=== PATIENT | female | born 1995 | race Caucasian/White ===

== ENCOUNTER 2016-09-01 03:43 | Emergency (ER) | payer BC, MEDICAID ==
[2016-09-01 03:54] VITALS: BP 128/85
[2016-09-01] MEDS ORDERED: Amoxicillin 500 MG Cap PO ONE (04:11)
--- NOTE | 2016-09-01 04:18 | EDM.PDOC ---
ED HPI ENT - General Chief Complaint: ENT Problem Stated Complaint: TOOTHACHE Time Seen by Provider: 09/01/16 03:47 Source of Information: Reports: Patient, RN notes reviewed - History of Present Illness INITIAL COMMENTS - FREE TEXT/NARRATIVE: 21-year-old female has been having dental pain for about a week. Her right lower posterior molar has been giving her trouble. This has been pressure sensitive for even longer, now becoming hot and cold sensitive. This started throbbing during the night. This morning it awakened her about an hour ago. She has been taking intermittent Advil with some but not complete relief. She feels like there is some swelling to the right side of her face. The pain radiates toward her right ear. She's had no fever or chills. No other unusual symptoms - Related Data Allergies/ADRs: Allergies Allergy/AdvReac Type Severity Reaction Status Date / Time Sulfa (Sulfonamide Allergy Rash Verified 09/01/16 03:54 Antibiotics) Home Meds: Home Meds Methylphenidate [Concerta] 54 mg PO DAILY 08/21/14 [History] Hydrocodone/Acetaminophen [[place] 5-325 Tablet] 1 each PO Q6HR PRN #10 tablet 03/12 [Rx] Past Medical History - Past Health History Medical/Surgical History: Denies Medical/Surgical History HEENT History: Reports: Otitis media Other HEENT History: tubes in both ears - Infectious Disease History Infectious Disease History: Reports: Chicken pox - Past Surgical History Other HEENT Surgeries/Procedures: [place] teeth removal Social & Family History - Tobacco Use Smoking Status *Q: Never Smoker Second Hand Smoke Exposure: No - Caffeine Use Caffeine Use: Reports: Soda - Alcohol Use Days Per Week of Alcohol Use: 0 - Recreational Drug Use Recreational Drug Use: No ED ROS ENT - Review of Systems Review Of Systems: See Below Constitutional: Denies: fever, chills HEENT: Reports: Dental pain. Denies: Sinus problem, Throat pain Respiratory: Denies: shortness of breath Cardiovascular: Denies: Chest pain GI/Abdominal: Denies: Abdominal pain, Nausea, Vomiting Musculoskeletal: Reports: no symptoms Skin: Reports: no symptoms Neurological: Reports: no symptoms ED EXAM, ENT - Physical Exam Exam: See Below General Appearance: alert, no apparent distress Eye Exam: bilateral eye: PERRL Ears: normal canal, normal TMs Nose: normal inspection Mouth/Throat: Normal inspection, Dental pain (there is tenderness to pressure and percussion right posterior lower molar, very minimal gum swelling presentsurrounding that tooth, there is tenderness of her face lateral to the tooth). No: Throat swelling, Tongue swelling Head: facial swelling (very slight right face) Neck: supple, full range of motion. No: lymphadenopathy (L), lymphadenopathy (R ) Respiratory/Chest: no respiratory distress, lungs clear, normal breath sounds Cardiovascular: regular rate, rhythm Extremities: normal inspection, normal range of motion Neurological: alert, oriented, no motor/sensory deficits Skin: Warm, Dry, Normal color, No rash Course - Vital Signs Last Recorded V/S: Last Vital Signs Temp 96.8 F 09/01/16 03:49 Pulse 102 H 09/01/16 03:49 Resp 18 09/01/16 03:49 BP 128/85 09/01/16 03:49 Pulse Ox 99 09/01/16 03:49 - Orders/Labs/Meds Meds: Medications Discontinued Medications Generic Name Dose Route Start Last Admin Trade Name Aguilar PRN Reason Stop Dose Admin Amoxicillin 1,000 mg 09/01/16 04:11 Amoxil PO 09/01/16 04:12 ONETIME ONE Departure - Departure Time of Disposition: 04:14 Disposition: Home, Self-Care 01 Condition: fair Clinical Impression: Pain, dental Prescriptions: Hydrocodone/Acetaminophen [[place] 5-325 Tablet] 1 each PO Q6HR PRN #10 tablet PRN Reason: Pain Instructions: Dental Caries, [id number] Referrals: Minnie Gabriel MD [Primary Care Provider] - Forms: ED Department Discharge Additional Instructions: amoxicillin 1000 mg twice daily until gone, Advil or ibuprofen 600 mg 2-3 times daily with food,you may take Tylenol in between doses up to 2 doses daily for extra pain relief, you may take Tylenol or hydrocodone if needed for more severe pain at bedtime to help you sleep, do not drive or work when taking hydrocodone, did not take hydrocodone and Tylenol at the same time, see dentist as soon as possible
== END 2016-09-01 04:25 | disposition home or self-care (01) ==
LOC: JD.ED 03:43
DX: K08.89 Other specified disorders of teeth and supporting structures (principal); Z88.2 Allergy status to sulfonamides
CPT/HCPCS: 99282; A9270; 99283

== ENCOUNTER 2016-09-11 21:09 | Emergency (ER) | payer BC | END 2016-09-11 22:50 | disposition left against medical advice (07) | LOC: JD.ED 21:09 | DX: Z53.21 Procedure and treatment not carried out due to patient leaving prior to being seen by health care provider (principal) | CPT/HCPCS: 99282-25 ==

== ENCOUNTER 2017-11-13 04:44 | Emergency (ER) | payer BC ==
[2017-11-13 04:53] VITALS: BP 129/72
[2017-11-13] MEDS ORDERED: Acetaminophen/HYDROcodone 325-5 MG Tab PO ONE (05:06)
--- NOTE | 2017-11-13 05:06 | EDM.PDOC ---
ED HPI GENERAL MEDICAL PROBLEM - General Chief Complaint: ENT Problem Stated Complaint: TOOTH PAIN Time Seen by Provider: 11/13/17 05:01 Source of Information: Reports: Patient, Family History Limitations: Reports: No Limitations - History of Present Illness INITIAL COMMENTS - FREE TEXT/NARRATIVE: The patient presents with left lower tooth pain. This started a few days ago. She has bad teeth and she has seen a dentist. She is not sure when she can get any work done. She has no fever or chills. Onset: Gradual Duration: Day(s): Location: Reports: Face (Left lower jaw pain) Quality: Reports: Sharp Severity: Severe Improves with: Reports: None Worsens with: Reports: None Associated Symptoms: Reports: No Other Symptoms Left Lower Tooth/Teeth Pain Score (Numeric/FACES): 10 - Related Data Allergies Allergy/AdvReac Type Severity Reaction Status Date / Time Sulfa (Sulfonamide Allergy Rash Verified 09/01/16 03:54 Antibiotics) Home Meds: Home Meds Methylphenidate [Concerta] 54 mg PO DAILY 08/21/14 [History] Hydrocodone/Acetaminophen [Hydrocodon-Acetaminophen 5-325] 1 - 2 each PO Q6HR PRN #20 tablet 11/13/17 [Rx] Penicillin V Potassium 500 mg PO Q6HR #40 tab 11/13/17 [Rx] Sertraline [Zoloft] 50 mg PO DAILY 11/13/17 [History] Past Medical History - Past Health History Medical/Surgical History: Denies Medical/Surgical History HEENT History: Reports: Otitis Media Other HEENT History: tubes in both ears Psychiatric History: Reports: ADHD - Infectious Disease History Infectious Disease History: Reports: Chicken Pox - Past Surgical History Other HEENT Surgeries/Procedures: [place] teeth removal Social & Family History - Family History Family Medical History: Noncontributory - Tobacco Use Smoking Status *Q: Never Smoker - Caffeine Use Caffeine Use: Reports: Soda - Recreational Drug Use Recreational Drug Use: No ED ROS ENT - Review of Systems Review Of Systems: See Below Constitutional: Reports: No Symptoms HEENT: Reports: Dental Pain Respiratory: Reports: No Symptoms Cardiovascular: Reports: No Symptoms Endocrine: Reports: No Symptoms GI/Abdominal: Reports: No Symptoms ED EXAM, ENT - Physical Exam Exam: See Below Exam Limited By: No Limitations General Appearance: Alert, No Apparent Distress Ears: Normal External Exam Nose: Normal Inspection Mouth/Throat: Other (Erythema, edema and pain upon palpation to the left lower jaw.) Course - Vital Signs Last Recorded V/S: Last Vital Signs Temp 97.8 F 11/13/17 04:49 Pulse 63 11/13/17 04:49 Resp 16 11/13/17 04:49 BP 129/72 11/13/17 04:49 Pulse Ox 100 11/13/17 04:49 Departure - Departure Time of Disposition: 05:05 Disposition: Home, Self-Care 01 Condition: Good Clinical Impression: Dental abscess, Pain, dental - Discharge Information Prescriptions: Hydrocodone/Acetaminophen [Hydrocodon-Acetaminophen 5-325] 1 - 2 each PO Q6HR PRN #20 tablet PRN Reason: Pain Penicillin V Potassium 500 mg PO Q6HR #40 tab Referrals: Minnie Gabriel MD [Primary Care Provider] - Additional Instructions: Take the medication as prescribed. Follow up with a dentist. Please return if you are worse.
== END 2017-11-13 05:12 | disposition home or self-care (01) ==
LOC: JD.ED 04:44
DX: K04.7 Periapical abscess without sinus (principal); Z88.2 Allergy status to sulfonamides
CPT/HCPCS: 99282; A9270; 99283

== ENCOUNTER 2018-02-23 15:38 | Emergency (ER) | payer BC ==
--- NOTE | 2018-02-23 15:43 | EDM.PDOC ---
ED HPI GENERAL MEDICAL PROBLEM - General Chief Complaint: Headache Stated Complaint: HEADACHE Time Seen by Provider: 02/23/18 15:43 Source of Information: Reports: Patient History Limitations: Reports: No Limitations - History of Present Illness INITIAL COMMENTS - FREE TEXT/NARRATIVE: Patient is a 22-year-old female presents ED complaining of left-sided retro- orbital headache that started approximately 4:00 this morning. Headache was gradual onset and has persisted throughout the course of the day. It waxes and wanes with intensity. Discomfort is constant described as being a throbbing sensation. This is worsen with noise and also exposure to light. There's been no upper respiratory symptoms, fever, stiff neck, shows breath, chest pain, numbness or tingling to extremities, weakness to extremities, or recent trauma and he precipitated this. She has a history of migraines in the past but this is little bit different. Patient states her last menstrual cycle was one week ago. She is not sexually active. Denies being . No alcohol use, recreational drug use, or smoking history. Currently the patient states is rated a 10 out of 10 but does not appear in acute distress during our conversation. She has no additional past medical history. Currently taking no meds. Surgical history none. Left Headache Pain Score (Numeric/FACES): 10 - Related Data Allergies Allergy/AdvReac Type Severity Reaction Status Date / Time Sulfa (Sulfonamide Allergy Rash Verified 09/01/16 03:54 Antibiotics) Home Meds: Home Meds Methylphenidate [Concerta] 54 mg PO DAILY 08/21/14 [History] Hydrocodone/Acetaminophen [Hydrocodon-Acetaminophen 5-325] 1 - 2 each PO Q6HR PRN #20 tablet 11/13/17 [Rx] Sertraline [Zoloft] 50 mg PO DAILY 11/13/17 [History] Past Medical History - Past Health History Medical/Surgical History: Denies Medical/Surgical History HEENT History: Reports: Otitis Media Other HEENT History: tubes in both ears Psychiatric History: Reports: ADHD - Infectious Disease History Infectious Disease History: Reports: Chicken Pox - Past Surgical History Other HEENT Surgeries/Procedures: [place] teeth removal Social & Family History - Family History Family Medical History: Noncontributory - Caffeine Use Caffeine Use: Reports: Soda ED ROS GENERAL - Review of Systems Review Of Systems: ROS reveals no pertinent complaints other than HPI. - Physical Exam Exam: See Below Exam Limited By: No Limitations General Appearance: Alert, WD/WN, No Apparent Distress Eye Exam: Bilateral Eye: EOMI, Normal Inspection, Nystagmus (None noted), PERRL Ears: Hearing Grossly Normal Nose: Normal Inspection Throat/Mouth: Normal Inspection, Normal Oropharynx, Normal Voice, No Airway Compromise Head Exam: Atraumatic, Normocephalic Neck: Normal Inspection, Supple, Non-Tender, Full Range of Motion Respiratory/Chest: No Respiratory Distress, Lungs Clear, Normal Breath Sounds, Chest Non-Tender Cardiovascular: Normal Peripheral Pulses, Regular Rate, Rhythm, No Murmur GI/Abdominal: Normal Bowel Sounds, Soft, Non-Tender, No Organomegaly, No Distention Neuro Exam (Abbreviated): Alert, Oriented, CN II-XII Intact, Normal Cognition, Normal Gait, No Motor/Sensory Deficits, Other (No facial droop, slurred speech, uvular deviation, tongue deviation, weakness discrepancy's to the upper or lower extremities. Finger-nose and rapid alternating movements are intact. Gait is normal.) Back Exam: Normal Inspection Extremities: Normal Inspection, Normal Range of Motion, Non-Tender Psychiatric: Normal Affect, Normal Mood Skin Exam: Warm, Dry, Intact, Normal Color Course - Vital Signs Last Recorded V/S: Last Vital Signs Temp 99.2 F 02/23/18 15:45 Pulse 86 02/23/18 15:45 Resp 20 02/23/18 15:45 BP 131/67 02/23/18 15:45 Pulse Ox 95 02/23/18 15:45 - Orders/Labs/Meds Meds: Medications Discontinued Medications Generic Name Dose Route Start Last Admin Trade Name Aguilar PRN Reason Stop Dose Admin Diphenhydramine HCl 50 mg 02/23/18 16:24 02/23/18 16:39 Benadryl IM 02/23/18 16:25 50 mg ONETIME ONE Administration Haloperidol Lactate 7.5 mg 02/23/18 16:24 02/23/18 16:39 Haldol IM 02/23/18 16:25 7.5 mg ONETIME ONE Administration Ketorolac Tromethamine 60 mg 02/23/18 16:24 02/23/18 16:38 Toradol IM 02/23/18 16:25 60 mg ONETIME ONE Administration Ondansetron HCl 4 mg 02/23/18 16:24 02/23/18 16:40 Zofran Odt PO 02/23/18 16:25 4 mg ONETIME ONE Administration - Re-Assessments/Exams Free Text/Narrative Re-Assessment/Exam: Patient is a 22-year-old female presents ED complaining of left-sided head discomfort retro-orbital sensitive to light and noise. Headache was gradual onset rated 10 out of 10. Patient does not appear to be in acute distress. We have discussed abortive therapy with Haldol, Benadryl, Zofran, and Toradol. Patient agrees with proceeding with administration of these meds. She has a ride present. 02/23/18 17:32 Reassessment, headache is currently a 5 out of 10. She is ready to be discharged home. Discharge instructions as documented.The patient remained hemodynamically stable while under my care in the E.D. I discussed the concerning symptoms for which to returnto the E.D. with the patient/family. The patient/family verbalized understanding. All questions were answered. Departure - Departure Time of Disposition: 17:42 Disposition: Home, Self-Care 01 Condition: Good Clinical Impression: Migraine Headache Qualifiers: Headache type: unspecified Headache chronicity pattern: acute headache Intractability: not intractable Qualified Code(s): R51 - Headache - Discharge Information *PRESCRIPTION DRUG MONITORING PROGRAM REVIEWED*: Not Applicable *COPY OF PRESCRIPTION DRUG MONITORING REPORT IN PATIENT GREG: Not Applicable Instructions: Migraine Headache, [id number] Referrals: Minnie Gabriel MD [Primary Care Provider] - Forms: ED Department Discharge Additional Instructions: Go home and finding a dark room to sleep with no distractions. Utilize Tylenol and ibuprofen and alternate fashion for headache. Drink plenty of fluids. See your PCP first part of next week for reevaluation as needed. Return to the ED if you develop any new or worsening symptoms as discussed.
[2018-02-23 15:46] VITALS: BP 131/67
[2018-02-23] MEDS ORDERED: diphenhydrAMINE 50 MG/ML SDV IM ONE (16:24)
[2018-02-23] MEDS ORDERED: Ondansetron 4 MG Tab.DIS PO ONE (16:24)
[2018-02-23] MEDS ORDERED: Ketorolac 60 MG/2 ML SDV IM ONE (16:24)
[2018-02-23] MEDS ORDERED: Haloperidol Lactate 5 MG/ML SDV IM ONE (16:24)
== END 2018-02-23 18:00 | disposition home or self-care (01) ==
LOC: JD.ED 15:38
DX: G43.909 Migraine, unspecified, not intractable, without status migrainosus (principal); Z88.2 Allergy status to sulfonamides; Z79.899 Other long term (current) drug therapy
CPT/HCPCS: 96372; 99284; A9270; J1200; J1630; J1885

== ENCOUNTER 2018-06-25 03:09 | Emergency (ER) | payer BC ==
[2018-06-25] MEDS ORDERED: traMADol 50 MG Tab PO ONE (03:32)
[2018-06-25 03:48] VITALS: BP 124/78
--- NOTE | 2018-06-25 04:46 | ER ---
REASON FOR EMERGENCY ROOM VISIT: Toothache. HISTORY OF PRESENT ILLNESS: This 22-year-old woman has had several visits to the emergency department for recurrent toothaches and dental abscesses. She is known to have very poor dentition and states that she has been unable to afford dental work. She has been treated with narcotics in the past for pain as well as antibiotics for flare-ups of her dental problems. She has had 2 visits to the ED this year and one in 2017. PAST MEDICAL HISTORY: 1. She has history of headaches. 2. History of otitis media. PAST SURGICAL HISTORY: History of wisdom teeth extraction. ALLERGIES: Sulfa antibiotics. CURRENT MEDICATIONS: Reviewed. See EMR include methylphenidate 50 mg p.o. daily and Zoloft 50 mg p.o. daily. PHYSICAL EXAMINATION: VITAL SIGNS: She is afebrile. Blood pressure 124/78, pulse rate is 76, and O2 saturations 99% on room air. HEENT: Head is normocephalic. She states she has some puffiness in her left cheek, but it is not discernible on physical examination. TMs are normal. Oropharynx, she has very poor dentition with numerous fillings, chipped teeth, cracked teeth and teeth broken off at the gum line all the way around top and bottom. She has redness and edema of her gingiva along the gingival dental margins all the way around. She does have tenderness on palpation of her left maxillary second molar. There is no cervical adenopathy present. IMPRESSION: Toothache, possible dental abscess. PLAN: Pen VK 500 mg, dispensed #40 one q.i.d. until all are gone. Tramadol 50 mg dispensed #20, one p.o. q.4 hours p.r.n. pain. A long discussion was undertaken regarding the hazards in continuing to neglect her dental health. Among these risks, I outlined to her things such as brain abscesses and so forth, so this is not just a matter of pain control rather it is a matter that it could threaten her health in a very serious way. She understands this and states that she does have a dental appointment in the upcoming sometime in the middle of June. MMSHU /[id number]
== END 2018-06-25 03:42 | disposition home or self-care (01) ==
LOC: JD.ED 03:09
DX: K08.89 Other specified disorders of teeth and supporting structures (principal); Z88.2 Allergy status to sulfonamides
CPT/HCPCS: 99283; A9270

== ENCOUNTER 2018-07-20 13:25 | Emergency (ER) | payer BC ==
[2018-07-20 14:03] VITALS: BP 111/65
--- NOTE | 2018-07-20 14:30 | EDM.PDOC ---
ED HPI GENERAL MEDICAL PROBLEM - General Chief Complaint: ENT Problem Stated Complaint: DENTAL COMPLAINT Time Seen by Provider: 07/20/18 14:08 Source of Information: Reports: Patient, RN Notes Reviewed - History of Present Illness INITIAL COMMENTS - FREE TEXT/NARRATIVE: severe dental pain R upper post molar, tooth has been decayed for a long time, pain has become much worse the past 2 to 3 days, taking ibuprofen without much relief. Right Upper Tooth/Teeth Pain Score (Numeric/FACES): 10 - Related Data Allergies Allergy/AdvReac Type Severity Reaction Status Date / Time Sulfa (Sulfonamide Allergy Rash Verified 06/25/18 03:25 Antibiotics) Home Meds: Home Meds Methylphenidate [Concerta] 54 mg PO DAILY 08/21/14 [History] Sertraline [Zoloft] 50 mg PO DAILY 11/13/17 [History] Acetaminophen/HYDROcodone [[place] 325-5 MG] 1 tab PO Q6H PRN #14 tablet 07/20/18 [Rx] Past Medical History - Past Health History Medical/Surgical History: Denies Medical/Surgical History HEENT History: Reports: Otitis Media Other HEENT History: tubes in both ears Neurological History: Reports: Other (See Below) Other Neuro History: occasional headaches Psychiatric History: Reports: ADHD - Infectious Disease History Infectious Disease History: Reports: Chicken Pox - Past Surgical History HEENT Surgical History: Reports: Oral Surgery Other HEENT Surgeries/Procedures: [place] teeth removal Social & Family History - Family History Family Medical History: Noncontributory - Tobacco Use Smoking Status *Q: Never Smoker - Caffeine Use Caffeine Use: Reports: Soda - Recreational Drug Use Recreational Drug Use: No ED ROS ENT - Review of Systems Review Of Systems: See Below Constitutional: Denies: Fever, Chills HEENT: Reports: Dental Pain Respiratory: Denies: Shortness of Breath Cardiovascular: Denies: Chest Pain GI/Abdominal: Denies: Abdominal Pain, Nausea, Vomiting Musculoskeletal: Reports: No Symptoms Skin: Denies: Rash Neurological: Reports: No Symptoms ED EXAM, ENT - Physical Exam Exam: See Below General Appearance: Alert, Mild Distress Eye Exam: Bilateral Eye: PERRL Nose: Normal Inspection Mouth/Throat: Dental Pain (tenderness of R upper post molar with decay present, gum not swollen, no drainage) Head: Facial Tenderness. No: Facial Swelling Neck: Supple. No: Lymphadenopathy (L), Lymphadenopathy (R) Respiratory/Chest: No Respiratory Distress, Lungs Clear Cardiovascular: Regular Rate, Rhythm Neurological: Alert, No Motor/Sensory Deficits Skin: Warm, Dry, Normal Color Course - Vital Signs Last Recorded V/S: Last Vital Signs Temp 98.6 F 07/20/18 14:01 Pulse 72 07/20/18 14:01 Resp 20 07/20/18 14:01 BP 111/65 07/20/18 14:01 Pulse Ox 99 07/20/18 14:01 Departure - Departure Time of Disposition: 14:27 Disposition: Home, Self-Care 01 Condition: Fair Clinical Impression: Pain, dental - Discharge Information Prescriptions: Acetaminophen/HYDROcodone [[place] 325-5 MG] 1 tab PO Q6H PRN #14 tablet PRN Reason: Pain Referrals: Minnie Gabriel MD [Primary Care Provider] - Forms: ED Department Discharge Additional Instructions: Amoxicillin 1000 mg twice daily, he may take hydrocodone if needed for severe pain. Do not drive or work when taking hydrocodone, see your dentist Monday as planned.
== END 2018-07-20 14:50 | disposition home or self-care (01) ==
LOC: JD.ED 13:25
DX: K08.89 Other specified disorders of teeth and supporting structures (principal); Z88.2 Allergy status to sulfonamides; Z79.899 Other long term (current) drug therapy
CPT/HCPCS: 99282; 99283

== ENCOUNTER 2019-04-01 16:03 | Emergency (ER) | payer BC, MEDICAID ==
[2019-04-01] MEDS ORDERED: FLU Vacc QS2019-20(6MOS+)/PF 60 MCG/0.5 ML SYRINGE IM ONE (16:45)
--- NOTE | 2019-04-01 16:47 | EDM.PDOC ---
ED HPI GENERAL MEDICAL PROBLEM - General Chief Complaint: ENT Problem Stated Complaint: DENTAL COMPLAINT Time Seen by Provider: 04/01/19 16:23 Source of Information: Reports: Patient History Limitations: Reports: No Limitations - History of Present Illness INITIAL COMMENTS - FREE TEXT/NARRATIVE: The patient presents with upper dental pain. This started a few days ago. She does have bad teeth and she went to the dentist today and he did x-rays and he is getting a plan of care. She has no fever or chills. Onset: Gradual Duration: Day(s): Location: Reports: Other Quality: Reports: Sharp Severity: Severe Improves with: Reports: None Worsens with: Reports: None Associated Symptoms: Reports: No Other Symptoms Right Oral/Mouth Pain Score (Numeric/FACES): 6 - Related Data Allergies Allergy/AdvReac Type Severity Reaction Status Date / Time Sulfa (Sulfonamide Allergy Rash Verified 04/01/19 16:24 Antibiotics) Home Meds: Home Meds Methylphenidate [Concerta] 54 mg PO DAILY 08/21/14 [History] Sertraline [Zoloft] 50 mg PO DAILY 11/13/17 [History] Hydrocodone/Acetaminophen [Hydrocodon-Acetaminophen 5-325] 1 - 2 each PO Q6HR PRN #20 tablet 04/01/19 [Rx] Levonorgestrel-Ethin Estradiol [[place]-28 Tablet] 1 each PO DAILY 04/01/19 [ History] Penicillin V Potassium 500 mg PO Q6HR #40 tab 04/01/19 [Rx] Past Medical History - Past Health History Medical/Surgical History: Denies Medical/Surgical History HEENT History: Reports: Otitis Media Other HEENT History: tubes in both ears Neurological History: Reports: Other (See Below) Other Neuro History: occasional headaches Psychiatric History: Reports: ADHD - Infectious Disease History Infectious Disease History: Reports: Chicken Pox - Past Surgical History HEENT Surgical History: Reports: Oral Surgery Other HEENT Surgeries/Procedures: [place] teeth removal Social & Family History - Family History Family Medical History: Noncontributory - Tobacco Use Smoking Status *Q: Never Smoker - Caffeine Use Caffeine Use: Reports: Soda - Recreational Drug Use Recreational Drug Use: No ED ROS ENT - Review of Systems Review Of Systems: See Below Constitutional: Reports: No Symptoms HEENT: Reports: Dental Pain Respiratory: Reports: No Symptoms Cardiovascular: Reports: No Symptoms Endocrine: Reports: No Symptoms GI/Abdominal: Reports: No Symptoms : Reports: No Symptoms ED EXAM, ENT - Physical Exam Exam: See Below Exam Limited By: No Limitations General Appearance: Alert, No Apparent Distress Ears: Normal External Exam Nose: Normal Inspection Mouth/Throat: Other ([place] eroded teeth with erythema and edema to the right upper gum line) Head: Atraumatic, Normocephalic Neck: Normal Inspection Course - Vital Signs Last Recorded V/S: Last Vital Signs Temp 97.5 F 04/01/19 16:22 Pulse 75 04/01/19 16:22 Resp 16 04/01/19 16:22 BP 127/67 04/01/19 16:22 Pulse Ox 98 04/01/19 16:22 - Orders/Labs/Meds Orders: Active Orders 24 hr Category Date Time Status Influenza Vaccine Charge [RC] .DISCHARGE Care 04/01/19 16:27 Active Pharmacy to Dose - InFluenza V [Pharmacy to Dose - Med 04/01/19 16:27 Once InFluenza Vaccine] 1 each IM ONETIME ONE Medication Orders Influenza Virus Vaccine (Pharmacy To Dose - Influenza Vaccine) 1 each IM ONETIME ONE Stop: 04/01/19 16:28 Meds: Medications Generic Name Dose Route Start Last Admin Trade Name Freq PRN Reason Stop Dose Admin Influenza Virus Vaccine 1 each 04/01/19 16:27 Pharmacy To Dose - Influenza Vaccine IM 04/01/19 16:28 ONETIME ONE Discontinued Medications Generic Name Dose Route Start Last Admin Trade Name Freq PRN Reason Stop Dose Admin Influenza Virus Vaccine 60 mcg 04/01/19 16:45 Fluzone Quad [id number] Syringe IM 04/01/19 16:46 .ONCE ONE Departure - Departure Time of Disposition: 16:50 Disposition: Home, Self-Care 01 Condition: Good Clinical Impression: Pain, dental, Dental abscess - Discharge Information *PRESCRIPTION DRUG MONITORING PROGRAM REVIEWED*: No *COPY OF PRESCRIPTION DRUG MONITORING REPORT IN PATIENT GREG: No Prescriptions: Hydrocodone/Acetaminophen [Hydrocodon-Acetaminophen 5-325] 1 - 2 each PO Q6HR PRN #20 tablet PRN Reason: Pain Penicillin V Potassium 500 mg PO Q6HR #40 tab Referrals: Minnie Gabriel MD [Primary Care Provider] - 1 Week Forms: ED Department Discharge Additional Instructions: Take the medicine as prescribed. Follow up with your dentist. Please return if you are worse. - My Orders Last 24 Hours: My Active Orders 04/01/19 16:27 Influenza Vaccine Charge [RC] .DISCHARGE Pharmacy to Dose - InFluenza V [Pharmacy to Dose - InFluenza Vaccine] 1 each IM ONETIME ONE - Assessment/Plan Last 24 Hours: My Active Orders 04/01/19 16:27 Influenza Vaccine Charge [RC] .DISCHARGE Pharmacy to Dose - InFluenza V [Pharmacy to Dose - InFluenza Vaccine] 1 each IM ONETIME ONE
[2019-04-01 16:52] VITALS: BP 127/67; PULSE 75
== END 2019-04-01 17:15 | disposition home or self-care (01) ==
LOC: JD.ED 16:03
DX: K04.7 Periapical abscess without sinus (principal); F90.9 Attention-deficit hyperactivity disorder, unspecified type; Z79.899 Other long term (current) drug therapy; Z88.2 Allergy status to sulfonamides
CPT/HCPCS: 90686; 99282-25; G0008

== ENCOUNTER 2019-08-17 12:28 | Emergency (ER) | payer BC, MEDICAID ==
[2019-08-17 12:37] VITALS: BP 138/74; PULSE 105
--- NOTE | 2019-08-17 12:59 | EDM.PDOC ---
ED HPI GENERAL MEDICAL PROBLEM - General Chief Complaint: General Stated Complaint: DENTAL COMPLAINT Time Seen by Provider: 08/17/19 12:34 Source of Information: Reports: Patient, Old Records, RN Notes Reviewed History Limitations: Reports: No Limitations - History of Present Illness INITIAL COMMENTS - FREE TEXT/NARRATIVE: Patient is a 24-year-old female who presents to the ED for a dental complaint. The patient notes that she has had prior issues with these teeth in the past, is complaining of left upper jaw pain. Of note her dentition is in very poor repair, with multiple caries extending into the dentin all over. She does point to 1 tooth in the incisor region that seems to be causing her most of the pain today. She is taking [id number] Motrin every 6 hours for pain relief , does state that this helps provide quite a bit relief. She notes that she recently got dental insurance, so she is looking into providers to help get her teeth situation taken care of. She has not had any fevers or chills, no nausea/ vomiting/diarrhea, no sore throat, and has not been feeling sick otherwise. Patient did have some mild facial swelling earlier today appreciated by a friend , but there is no discernible facial swelling noted right now. Tooth/Teeth Pain Score (Numeric/FACES): 7 - Related Data Allergies Allergy/AdvReac Type Severity Reaction Status Date / Time Sulfa (Sulfonamide Allergy Rash Verified 08/17/19 12:34 Antibiotics) Home Meds: Home Meds Methylphenidate [Concerta] 54 mg PO DAILY 08/21/14 [History] Sertraline [Zoloft] 50 mg PO DAILY 11/13/17 [History] Levonorgestrel-Ethin Estradiol [Falmina-28 Tablet] 1 each PO DAILY 04/01/19 [ History] Naproxen [Naprosyn] 500 mg PO Q12HR #14 tab 08/17/19 [Rx] Penicillin V Potassium 500 mg PO Q6HR #40 tab 08/17/19 [Rx] Past Medical History HEENT History: Reports: Otitis Media, Other (See Below) Other HEENT History: tubes in both ears, poor dentition-recurrent tooth infections Neurological History: Reports: Other (See Below) Other Neuro History: occasional headaches Psychiatric History: Reports: ADHD, Depression - Infectious Disease History Infectious Disease History: Reports: Chicken Pox - Past Surgical History HEENT Surgical History: Reports: Oral Surgery Other HEENT Surgeries/Procedures: [place] teeth removal Social & Family History - Family History Family Medical History: Noncontributory - Tobacco Use Smoking Status *Q: Never Smoker - Caffeine Use Caffeine Use: Reports: Soda - Recreational Drug Use Recreational Drug Use: No ED ROS GENERAL - Review of Systems Review Of Systems: Comprehensive ROS is negative, except as noted in HPI. Constitutional: Denies: Fever, Chills HEENT: Reports: Dental Pain (see HPI) Respiratory: Denies: Shortness of Breath Cardiovascular: Denies: Chest Pain GI/Abdominal: Denies: Abdominal Pain, Nausea, Vomiting Neurological: Denies: Headache ED EXAM, GENERAL - Physical Exam Exam: See Below Exam Limited By: No Limitations General Appearance: Alert, WD/WN, No Apparent Distress Eye Exam: Bilateral Eye: EOMI, Normal Inspection, PERRL Ears: Normal External Exam Nose: Normal Inspection Throat/Mouth: Normal Inspection, Normal Lips, Normal Voice, No Airway Compromise , Inflammation (Along the gumline, specifically around the left upper jaw, where the patient is having most of her pain. There is no identifiable abscess or fluctuance.), Other (Dentition is in very poor repair. There are diffuse dental caries noted throughout the entire dentition. Most of which are exposed into the dentin.) Head: Atraumatic, Normocephalic Neck: Normal Inspection, Supple, Non-Tender, Full Range of Motion Respiratory/Chest: No Respiratory Distress, Lungs Clear, Normal Breath Sounds, No Accessory Muscle Use, Chest Non-Tender Cardiovascular: Normal Peripheral Pulses, Regular Rate, Rhythm, No Murmur Peripheral Pulses: 3+: Radial (L), Radial (R) Extremities: Normal Inspection, Normal Capillary Refill Neurological: Alert, Oriented, Normal Cognition, No Motor/Sensory Deficits Psychiatric: Normal Affect, Normal Mood Skin Exam: Warm, Dry, Intact, Normal Color, No Rash Course - Vital Signs Last Recorded V/S: Last Vital Signs Temp 97.2 F 08/17/19 12:34 Pulse 105 H 08/17/19 12:34 Resp 17 08/17/19 12:34 BP 138/74 08/17/19 12:34 Pulse Ox 99 08/17/19 12:34 - Re-Assessments/Exams Free Text/Narrative Re-Assessment/Exam: 08/17/19 13:04 Patient presents to the ED for dental complaint. As this is an ongoing problem and she is obviously not sought dental care. I will give her some penicillin for suspected infection, and Naprosyn tablets for the pain. She will be directed to follow-up with a dental clinic, she states she does have dental insurance at this time, I did give her the number for the [facility] in [place] as they have been known to work with people who do not have dental insurance or provide payment plans. Medications have been electronically prescribed to cynthia Hall by Jose per her choice. Departure - Departure Time of Disposition: 12:55 Disposition: Home, Self-Care 01 Condition: Fair Clinical Impression: Dental caries extending into dentin - Discharge Information *PRESCRIPTION DRUG MONITORING PROGRAM REVIEWED*: No *COPY OF PRESCRIPTION DRUG MONITORING REPORT IN PATIENT GREG: No Prescriptions: Penicillin V Potassium 500 mg PO Q6HR #40 tab Naproxen [Naprosyn] 500 mg PO Q12HR #14 tab Referrals: Minnie Gabriel MD [Primary Care Provider] - Forms: ED Department Discharge, ED Return to Work/School Form Additional Instructions: You have been evaluated in the ED for your dental pain. You have been provided with a script for Penicillin. This was electronically sent to the [facility] pharmacy located near [facility]. Please take this medication as directed. (1 tab Q6H for 10 days or until gone). You were given a prescription for Naprosyn, Please take 1 tab every 12 hours for pain relief. You may use hot pack/ ice packs to the affected area as tolerated in 15-20 minute intervals. You will ultimately need to find a dentist to provide definitive management of your dental pain. The [facility] in [place], [place], , is a clinic that has been known to take people that do not have dental insurance, and may provide payment plans. You might want to check with this provider, regarding your dental pain. Please return to the ED if your symptoms change or worsen. Sepsis Event Note - Evaluation Sepsis Screening Result: No Definite Risk - Focused Exam Vital Signs: Vital Signs Temp Pulse Resp BP Pulse Ox 08/17/19 12:34 97.2 F 105 H 17 138/74 99 Date Exam was Performed: 08/17/19 Time Exam was Performed: 12:59
== END 2019-08-17 13:00 | disposition home or self-care (01) ==
LOC: JD.ED 12:28
DX: K02.9 Dental caries, unspecified (principal); F90.9 Attention-deficit hyperactivity disorder, unspecified type; F32.9 Major depressive disorder, single episode, unspecified; Z79.899 Other long term (current) drug therapy; Z88.2 Allergy status to sulfonamides
CPT/HCPCS: 99283

== ENCOUNTER 2019-09-30 07:04 | Emergency (ER) | payer BC, OTHER ==
--- NOTE | 2019-09-30 07:45 | EDM.PDOC ---
ED HPI GENERAL MEDICAL PROBLEM - General Chief Complaint: ENT Problem Stated Complaint: TOOTH INFECTION Time Seen by Provider: 09/30/19 07:24 Source of Information: Reports: Patient History Limitations: Reports: No Limitations - History of Present Illness INITIAL COMMENTS - FREE TEXT/NARRATIVE: The patient presents with left upper jaw tooth pain. This has been an ongoing problem for months. She was going to see a dentist a couple weeks ago but the COVID 19 pandemic shut down the dentist's office. She is scheduled to go there next week on the . She has no fever or chills. Onset: Gradual Duration: Week(s): Location: Reports: Other (Mouth) Quality: Reports: Sharp Severity: Severe Improves with: Reports: None Worsens with: Reports: None Associated Symptoms: Reports: No Other Symptoms Tooth/Teeth Pain Score (Numeric/FACES): 5 - Related Data Allergies Allergy/AdvReac Type Severity Reaction Status Date / Time Sulfa (Sulfonamide Allergy Rash Verified 09/30/19 07:22 Antibiotics) Home Meds: Home Meds Methylphenidate [Concerta] 54 mg PO DAILY 08/21/14 [History] Sertraline [Zoloft] 50 mg PO DAILY 11/13/17 [History] Levonorgestrel-Ethin Estradiol [Falmina-28 Tablet] 1 each PO DAILY 04/01/19 [ History] Hydrocodone/Acetaminophen [Hydrocodon-Acetaminophen 5-325] 1 - 2 each PO Q6HR PRN #15 tablet 09/30/19 [Rx] Penicillin V Potassium 500 mg PO Q6HR #40 tab 09/30/19 [Rx] Past Medical History - Past Health History Medical/Surgical History: Denies Medical/Surgical History HEENT History: Reports: Otitis Media, Other (See Below) Other HEENT History: tubes in both ears, poor dentition-recurrent tooth infections Neurological History: Reports: Other (See Below) Other Neuro History: occasional headaches Psychiatric History: Reports: ADHD, Depression - Infectious Disease History Infectious Disease History: Reports: Chicken Pox - Past Surgical History HEENT Surgical History: Reports: Oral Surgery Other HEENT Surgeries/Procedures: [place] teeth removal Social & Family History - Family History Family Medical History: Noncontributory - Tobacco Use Smoking Status *Q: Never Smoker - Caffeine Use Caffeine Use: Reports: None - Recreational Drug Use Recreational Drug Use: No ED ROS ENT - Review of Systems Review Of Systems: See Below Constitutional: Reports: No Symptoms HEENT: Reports: Dental Pain Respiratory: Reports: No Symptoms Cardiovascular: Reports: No Symptoms Endocrine: Reports: No Symptoms GI/Abdominal: Reports: No Symptoms : Reports: No Symptoms Musculoskeletal: Reports: No Symptoms ED EXAM, ENT - Physical Exam Exam: See Below Exam Limited By: No Limitations General Appearance: Alert, No Apparent Distress Ears: Normal External Exam Nose: Normal Inspection Mouth/Throat: Other (Very poor dentition with erythema and pain upon palpation to the 1st left upper molar) Course - Vital Signs Last Recorded V/S: Last Vital Signs Temp 97.5 F 09/30/19 07:20 Pulse 87 09/30/19 07:20 Resp 16 09/30/19 07:20 BP 131/75 09/30/19 07:20 Pulse Ox 95 09/30/19 07:20 Departure - Departure Time of Disposition: 07:45 Disposition: Home, Self-Care 01 Condition: Good Clinical Impression: Dental caries, Dental abscess, Pain, dental - Discharge Information *PRESCRIPTION DRUG MONITORING PROGRAM REVIEWED*: No *COPY OF PRESCRIPTION DRUG MONITORING REPORT IN PATIENT GREG: No Prescriptions: Hydrocodone/Acetaminophen [Hydrocodon-Acetaminophen 5-325] 1 - 2 each PO Q6HR PRN #15 tablet PRN Reason: Pain Penicillin V Potassium 500 mg PO Q6HR #40 tab Referrals: Minnie Gabriel MD [Primary Care Provider] - Additional Instructions: Take the antibiotics as prescribed. Take tylenol or motrin as needed for pain. If that does not help, try the hydrocodone. You may also try some orajel. Follow up with your dentist. Sepsis Event Note - Evaluation Sepsis Screening Result: No Definite Risk - Focused Exam Vital Signs: Vital Signs Temp Pulse Resp BP Pulse Ox 09/30/19 07:20 97.5 F 87 16 131/75 95 Date Exam was Performed: 09/30/19 Time Exam was Performed: 07:39
== END 2019-09-30 08:00 | disposition home or self-care (01) ==
LOC: JD.ED 07:04
CPT/HCPCS: 99282; 99283

== ENCOUNTER 2020-01-18 10:09 | Emergency (ER) | payer BC, OTHER ==
[2020-01-18 10:47] VITALS: BP 128/81; PULSE 91
[2020-01-18] MEDS ORDERED: Ondansetron 4 MG/2 ML SDV IVPUSH ONE (12:18)
[2020-01-18] MEDS ORDERED: Sodium Chloride 0.9% 1,000 ML IV SCH (12:30)
--- NOTE | 2020-01-18 12:32 | EDM.PDOC ---
ED HPI GENERAL MEDICAL PROBLEM - General Chief Complaint: Abdominal Pain Stated Complaint: ABDOMINAL PAIN Time Seen by Provider: 01/18/20 12:10 Source of Information: Reports: Patient History Limitations: Reports: No Limitations - History of Present Illness INITIAL COMMENTS - FREE TEXT/NARRATIVE: Patient is a 24-year-old female who presents with complaints of right lower quadrant abdominal pain for the last week. She states symptoms initially began last Monday with nausea and generalized abdominal pain. She had no vomiting, however states she felt like she could vomit. Denies diarrhea. States since that time the pain is more localized to the right lower quadrant, however it does occasionally have "shooting pains "across to the left side of her abdomen. She states that she feels she has been feverish off and on, however she does not have a thermometer at home. She denies any history of previous abdominal surgeries. She does still have her gallbladder and her appendix. Right Abdomen Pain Score (Numeric/FACES): 4 - Related Data Allergies Allergy/AdvReac Type Severity Reaction Status Date / Time Sulfa (Sulfonamide Allergy Rash Verified 09/30/19 07:22 Antibiotics) Home Meds: Home Meds Methylphenidate [Concerta] 54 mg PO DAILY 08/21/14 [History] Sertraline [Zoloft] 50 mg PO DAILY 11/13/17 [History] Levonorgestrel/Ethin.estradiol [Falmina-28 Tablet] 1 each PO DAILY 04/01/19 [History] Meloxicam 15 mg PO DAILY 01/18/20 [History] Nitrofurantoin Monohyd/M-Cryst [Macrobid 100 mg Capsule] 100 mg PO BID 5 Days #10 capsule 01/18/20 [Rx] Past Medical History - Past Health History Medical/Surgical History: Denies Medical/Surgical History HEENT History: Reports: Otitis Media, Other (See Below) Other HEENT History: tubes in both ears, poor dentition-recurrent tooth infections Neurological History: Reports: Other (See Below) Other Neuro History: occasional headaches Psychiatric History: Reports: ADHD, Depression - Infectious Disease History Infectious Disease History: Reports: Chicken Pox - Past Surgical History HEENT Surgical History: Reports: Oral Surgery Other HEENT Surgeries/Procedures: [place] teeth removal Social & Family History - Family History Family Medical History: Noncontributory - Tobacco Use Smoking Status *Q: Never Smoker - Caffeine Use Caffeine Use: Reports: Soda - Recreational Drug Use Recreational Drug Use: No ED ROS GENERAL - Review of Systems Review Of Systems: See Below Constitutional: Reports: No Symptoms. Denies: Fever, Chills HEENT: Reports: No Symptoms Respiratory: Reports: No Symptoms Cardiovascular: Reports: No Symptoms Endocrine: Reports: No Symptoms GI/Abdominal: Reports: Abdominal Pain (RLQ), Nausea. Denies: Diarrhea, Vomiting : Reports: No Symptoms Musculoskeletal: Denies: No Symptoms Skin: Denies: No Symptoms Neurological: Denies: No Symptoms Psychiatric: Denies: No Symptoms Hematologic/Lymphatic: Denies: No Symptoms ED EXAM, GI/ABD - Physical Exam Exam: See Below Exam Limited By: No Limitations General Appearance: Alert, WD/WN, No Apparent Distress Respiratory/Chest: No Respiratory Distress, Lungs Clear, Normal Breath Sounds, No Accessory Muscle Use, Chest Non-Tender Cardiovascular: Normal Peripheral Pulses, Regular Rate, Rhythm, No Edema, No Gallop, No JVD, No Murmur, No Rub GI/Abdominal Exam: Normal Bowel Sounds, Soft, No Organomegaly, No Distention, No Abnormal Bruit, No Mass, Pelvis Stable, Tender (RLQ). No: Guarding, Rigid, Rebound Neurological: Alert, Oriented, CN II-XII Intact, Normal Cognition, Normal Gait, Normal Reflexes, No Motor/Sensory Deficits Psychiatric: Normal Affect, Normal Mood Skin Exam: Warm, Dry, Intact, Normal Color, No Rash Course - Vital Signs Last Recorded V/S: Last Vital Signs Temp 98.4 F 01/18/20 10:42 Pulse 91 01/18/20 10:42 Resp 18 01/18/20 10:42 BP 128/81 01/18/20 10:42 Pulse Ox 98 01/18/20 10:42 - Orders/Labs/Meds Labs: Laboratory Tests 01/18/20 01/18/20 01/18/20 Range/Units 12:29 12:29 12:29 WBC 5.06 (3.98-10.04) K/mm3 RBC 4.67 (3.98-5.22) M/mm3 Hgb 14.2 (11.2-15.7) gm/dl Hct 44.9 (34.1-44.9) % MCV 96.1 H (79.4-94.8) fl MCH 30.4 (25.6-32.2) pg MCHC 31.6 L (32.2-35.5) g/dl RDW Std Deviation 45.5 (36.4-46.3) fL Plt Count 318 (182-369) K/mm3 MPV 10.0 (9.4-12.3) fl Neut % (Auto) 42.5 (34.0-71.1) % Lymph % (Auto) 39.9 (19.3-51.7) % [place] % (Auto) 15.0 H (4.7-12.5) % Eos % (Auto) 1.0 (0.7-5.8) Baso % (Auto) 1.0 (0.1-1.2) % Neut # (Auto) 2.15 (1.56-6.13) K/mm3 Lymph # (Auto) 2.02 (1.18-3.74) K/mm3 [place] # (Auto) 0.76 H (0.24-0.36) K/mm3 Eos # (Auto) 0.05 (0.04-0.36) K/mm3 Baso # (Auto) 0.05 (0.01-0.08) K/mm3 Sodium (136-145) mEq/L Potassium (3.5-5.1) mEq/L Chloride (98-107) mEq/L Carbon Dioxide (21-32) mEq/L Anion Gap (5-15) BUN (7-18) mg/dL Creatinine (0.55-1.02) mg/dL Est Cr Clr Drug Dosing mL/min Estimated GFR (MDRD) (>60) mL/min BUN/Creatinine Ratio (14-18) Glucose (74-106) mg/dL Calcium (8.5-10.1) mg/dL Total Bilirubin (0.2-1.0) mg/dL AST (15-37) U/L ALT (14-59) U/L Alkaline Phosphatase (46-116) U/L C-Reactive Protein (<1.0) mg/dL Total Protein (6.4-8.2) g/dl Albumin (3.4-5.0) g/dl Globulin gm/dL Albumin/Globulin Ratio (1-2) Urine Color Yellow (Yellow) Urine Appearance Slt cloudy H (Clear) Urine pH 6.0 (5.0-8.0) Ur Specific [place] > or = 1.030 (1.005-1.030) Urine Protein Negative (Negative) Urine Glucose (UA) Negative (Negative) Urine Ketones Negative (Negative) Urine Occult Blood 3+ H (Negative) Urine Nitrite Negative (Negative) Urine Bilirubin Negative (Negative) Urine Urobilinogen 0.2 (0.2-1.0) Ur Leukocyte Esterase 1+ H (Negative) Urine RBC 5-10 H (0-5) /hpf Urine WBC 30-40 H (0-5) /hpf Ur Epithelial Cells 5-10 H (0-5) /hpf Urine Bacteria Few (FEW) /hpf Urine Mucus Moderate H (FEW) /hpf Urine HCG, Qual Negative (NEGATIVE) 01/18/20 Range/Units 12:29 WBC (3.98-10.04) K/mm3 RBC (3.98-5.22) M/mm3 Hgb (11.2-15.7) gm/dl Hct (34.1-44.9) % MCV (79.4-94.8) fl MCH (25.6-32.2) pg MCHC (32.2-35.5) g/dl RDW Std Deviation (36.4-46.3) fL Plt Count (182-369) K/mm3 MPV (9.4-12.3) fl Neut % (Auto) (34.0-71.1) % Lymph % (Auto) (19.3-51.7) % [place] % (Auto) (4.7-12.5) % Eos % (Auto) (0.7-5.8) Baso % (Auto) (0.1-1.2) % Neut # (Auto) (1.56-6.13) K/mm3 Lymph # (Auto) (1.18-3.74) K/mm3 [place] # (Auto) (0.24-0.36) K/mm3 Eos # (Auto) (0.04-0.36) K/mm3 Baso # (Auto) (0.01-0.08) K/mm3 Sodium 137 (136-145) mEq/L Potassium 3.7 (3.5-5.1) mEq/L Chloride 101 (98-107) mEq/L Carbon Dioxide 26 (21-32) mEq/L Anion Gap 13.7 (5-15) BUN 20 H (7-18) mg/dL Creatinine 0.8 (0.55-1.02) mg/dL Est Cr Clr Drug Dosing 94.44 mL/min Estimated GFR (MDRD) > 60 (>60) mL/min BUN/Creatinine Ratio 25.0 H (14-18) Glucose 100 (74-106) mg/dL Calcium 9.0 (8.5-10.1) mg/dL Total Bilirubin 0.2 (0.2-1.0) mg/dL AST 75 H (15-37) U/L ALT 128 H (14-59) U/L Alkaline Phosphatase 61 (46-116) U/L C-Reactive Protein 1.5 H* (<1.0) mg/dL Total Protein 8.0 (6.4-8.2) g/dl Albumin 3.6 (3.4-5.0) g/dl Globulin 4.4 gm/dL Albumin/Globulin Ratio 0.8 L (1-2) Urine Color (Yellow) Urine Appearance (Clear) Urine pH (5.0-8.0) Ur Specific [place] (1.005-1.030) Urine Protein (Negative) Urine Glucose (UA) (Negative) Urine Ketones (Negative) Urine Occult Blood (Negative) Urine Nitrite (Negative) Urine Bilirubin (Negative) Urine Urobilinogen (0.2-1.0) Ur Leukocyte Esterase (Negative) Urine RBC (0-5) /hpf Urine WBC (0-5) /hpf Ur Epithelial Cells (0-5) /hpf Urine Bacteria (FEW) /hpf Urine Mucus (FEW) /hpf Urine HCG, Qual (NEGATIVE) Meds: Medications Discontinued Medications Generic Name Dose Route Start Last Admin Trade Name Freq PRN Reason Stop Dose Admin Diatrizoate Meglum/Diatrizoate Sod 40 ml 01/18/20 14:10 01/18/20 14:11 Gastrografin 37% PO 01/18/20 14:11 40 ml ONETIME ONE Administration Sodium Chloride 1,000 mls @ 150 mls/hr 01/18/20 12:30 01/18/20 12:38 Normal Saline IV 150 mls/hr ASDIRECTED AYLIN Administration Iopamidol 100 ml 01/18/20 14:10 01/18/20 14:11 Isovue-300 (61%) IVPUSH 01/18/20 14:11 100 ml ONETIME ONE Administration Ondansetron HCl 4 mg 01/18/20 12:18 01/18/20 12:38 Zofran IVPUSH 01/18/20 12:19 4 mg ONETIME ONE Administration Sodium Chloride 10 ml 01/18/20 12:17 01/18/20 14:10 Saline Flush FLUSH 10 ml ASDIRECTED PRN Administration Keep Vein Open - Re-Assessments/Exams Free Text/Narrative Re-Assessment/Exam: 01/18/20 1430 Hematology was significant for AST slightly elevated at 75 and ALT 128. CRP 1.5. Urinalysis was suggestive of infection versus contamination.. CT scan of the abdomen pelvis showed no acute abnormalities. Patient will be started on Macrobid for UTI. Discharge instructions as documented. Departure - Departure Time of Disposition: 14:41 Disposition: Home, Self-Care 01 Condition: Good Clinical Impression: Abdominal pain Qualifiers: Abdominal location: right lower quadrant Qualified Code(s): R10.31 - Right lower quadrant pain - Discharge Information *PRESCRIPTION DRUG MONITORING PROGRAM REVIEWED*: No *COPY OF PRESCRIPTION DRUG MONITORING REPORT IN PATIENT GREG: No Prescriptions: Nitrofurantoin Monohyd/M-Cryst [Macrobid 100 mg Capsule] 100 mg PO BID 5 Days #10 capsule Instructions: Abdominal Pain, Adult Referrals: Minnie Gabriel MD [Primary Care Provider] - Forms: ED Department Discharge Additional Instructions: You were seen in the emergency department today for abdominal pain over the last week. Your work-up included blood work, urinalysis, and a CT scan of your abdomen and pelvis. Your blood work was found to be normal as was the CT scan. There are no signs that she has appendicitis. You do have a urinary tract infection so you have been started on Macrobid which is an antibiotic. There is a moderate amount of stool throughout the left side of your colon which may be contributing to your pain. Recommend that you purchase [id number] MiraLAX and take that daily for the next few days to help move your bowels. If you continue to have ongoing pain, recommend you follow-up with your primary care provider. Return to the ER for any new or worsening symptoms. Sepsis Event Note (ED) - Evaluation Sepsis Screening Result: No Definite Risk
[2020-01-18] MEDS: Sodium Chloride 0.9% 10 ML Syringe FLUSH PRN ×2 (12:39→14:10)
[2020-01-18] MEDS ORDERED: Iopamidol 612 MG/ML 100 ML Bottle IVPUSH ONE (14:10)
[2020-01-18] MEDS ORDERED: Diatrizoate Meglumine/Diatrizoate Sodium 37% 120 ML Bottle PO ONE (14:10)
--- NOTE | 2020-01-18 14:33 | CT ---
CT abdomen and pelvis Technique: Multiple axial sections were obtained from above the dome of the diaphragm inferiorly through the pubic symphysis. Intravenous and oral contrast has been given. Delayed images were also obtained through the bladder. Findings: Appendix is seen which is normal in size. Visualized lung bases show nothing acute. Liver contains no focal abnormality. Spleen appears within normal limits. Adrenal glands show no nodule. Pancreas shows no focal abnormality. Aorta shows no aneurysm. Gallbladder contains no calcified gallstones. Kidneys show symmetric contrast enhancement. 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 No ureteral dilatation is seen. No retroperitoneal adenopathy is seen. Aorta shows no aneurysm. No mesenteric abnormalities are seen. No pelvic mass or adenopathy is seen. No free fluid or inflammatory change is appreciated. Delayed images shows contrast within the distal left ureter and contrast within the bladder. Bone window settings were reviewed which appear within normal limits for the patient's age. No acute osseous finding is appreciated. Impression: 1. Findings as noted above. Nothing acute is appreciated on CT study of the abdomen and pelvis. No etiology identified to explain the patient's right lower quadrant pain. Diagnostic code #2 This report was dictated in MDT
== END 2020-01-18 15:15 | disposition home or self-care (01) ==
LOC: JD.ED 10:09
DX: R10.31 Right lower quadrant pain (principal); F32.9 Major depressive disorder, single episode, unspecified; F90.9 Attention-deficit hyperactivity disorder, unspecified type; Z88.2 Allergy status to sulfonamides; Z79.899 Other long term (current) drug therapy
CPT/HCPCS: 36415; 74177; 80053; 81001; 81025; 85025; 86140; 87086; 96374; 99284; J2405; J7030; Q9963; Q9967; 99283